=== PATIENT | female | born 1970 | race Caucasian/White ===

== ENCOUNTER 2022-12-20 09:32 | Emergency (ER) | payer OTHER ==
[2022-12-20] MEDS ORDERED: Boostrix 0.5 ML (Tdap) VIAL (>/=7 yrs of age) ONE (10:02)
== END 2022-12-20 10:25 | disposition home or self-care (01) ==
LOC: NAV ERS 09:32
DX: S61.211A Laceration without foreign body of left index finger without damage to nail, initial encounter (principal); W26.0XXA Contact with knife, initial encounter; Y93.89 Activity, other specified; Y92.219 Unspecified school as the place of occurrence of the external cause; Z23 Encounter for immunization
CPT/HCPCS: 12001; 90471; 90715